=== PATIENT | male | born 2005 | race Caucasian/White ===

== ENCOUNTER 2024-07-23 13:25 | Emergency (ER) | payer SELFPAY, OTHER ==
[2024-07-23] MEDS ORDERED: Ketorolac Tromethamine 30 MG (1 mL) VIAL ONE (13:39)
[2024-07-23] MEDS ORDERED: Lidocaine 4% Patch ONE (13:40)
== END 2024-07-23 15:43 | disposition home or self-care (01) ==
LOC: ERS 13:25
DX: M25.511 Pain in right shoulder (principal); V48.6XXA Car passenger injured in noncollision transport accident in traffic accident, initial encounter; W22.12XA Striking against or struck by front passenger side automobile airbag, initial encounter
CPT/HCPCS: 71046; 96372; J1885

== ENCOUNTER 2025-09-06 14:02 | Outpatient (CLI) | payer OTHER | END 2025-09-06 14:03 | disposition home or self-care (01) | LOC: BICMRI 14:02 | PROVIDERS: ATTEND Orthopaedic Surgery | DX: S83.512A Sprain of anterior cruciate ligament of left knee, initial encounter (principal); S83.242A Other tear of medial meniscus, current injury, left knee, initial encounter ==